=== PATIENT | male | born 1935 | race African-American/Black ===

== ENCOUNTER 2023-03-11 10:15 | Inpatient (IN) | payer BC, OTHER ==
[2023-03-11] VITALS (20 sets, daily range): BP systolic 129–170; BP diastolic 49–83; PULSE 68–82; RESP 10–18; TEMP 98–98.6; O2SAT 97–99
[~2023-03-11] VITALS: Ht 193 cm; Wt 89.9 kg
[2023-03-11] MEDS ORDERED: SODIUM CHLORIDE 0.9% 500 ML IVB ONE (10:45)
[2023-03-11 11:31] LABS: Lactic Acid w/Reflex 2.8 mmol/L (0.4-2.0)
[2023-03-11 11:37] LABS: Basophils # (auto) 0 10 ^3/uL (0-0.2); Basophils % (auto) 0.9 % (0.0-2.0); Eosinophils # (auto) 0 10 ^3/uL (0-0.8); Eosinophils % (auto) 0.6 % (0.0-7.0); Hematocrit 8.3 % (41.0-53.0); Lymphocytes # (auto) 0.9 10 ^3/uL (0.4-5.4); Lymphocytes % (auto) 29.9 % (10.0-50.0); Mean Corpuscular Hgb Conc. 28.3 g/dL (32.0-36.0); Mean Corpuscular Volume 56.7 fL (80.0-100.0); Monocytes # (auto) 0.2 10 ^3/uL (0-1.3); Monocytes % (auto) 8.5 % (0.0-12.0); Neutrophils # (auto) 1.7 10 ^3/uL (1.6-8.6); Neutrophils % (auto) 60.1 % (37.0-80.0); Nucleated Red Blood Cells % 1.2 %; Red Blood Cells 1.46 10^6/uL (4.5-5.90); White Blood Cell 2.9 10^3/uL (4.4-10.8)
[2023-03-11 11:40] LABS: Red Cell Distribution Width 20.6 % (11.8-14.3)
[2023-03-11 11:44] LABS: Alanine Aminotransferase 14 U/L (16-61); Albumin 2.7 g/dL (3.4-5.0); Anion Gap 8 (5-15); Aspartate Aminotransferase 8 U/L (15-37); BUN/Creatinine Ratio 11.1 (10.0-20.0); Blood Alcohol < 3.0 mg/dL (<10); Blood Urea Nitrogen 18 mg/dL (7-18); Calcium 7.8 mg/dL (8.5-10.1); Carbon Dioxide 20 mmol/L (21-32); Chloride 113 mmol/L (98-107); GFR African American 52 mL/min; GFR Non-African American 43 mL/min; Glucose 127 mg/dL (74-106); Magnesium 2.4 mg/dL (1.6-2.6); Potassium 3.9 mmol/L (3.5-5.1); Sodium 141 mmol/L (136-145)
[2023-03-11 11:47] LABS: Alkaline Phosphatase 41 U/L (45-117); Bilirubin, Total 0.2 mg/dL (0.2-1.0); Total Protein 4.8 g/dL (6.4-8.2)
[2023-03-11 12:00] LABS: Hemoglobin 2.3 g/dL (13.5-17.5)
[2023-03-11 12:02] LABS: Platelet Estimate Adequate
[2023-03-11 12:03] LABS: Anisocytosis Slight; Hypochromia Marked
[2023-03-11 12:05] LABS: Tear Drop Cells MODERA
[2023-03-11 12:06] LABS: Ovalocytes MODE
[2023-03-11 12:07] LABS: Target Cell FEW
[2023-03-11] MEDS ORDERED: NITROGLYCERIN 0.4 MG SL TAB SL PRN (12:30)
[2023-03-11] MEDS ORDERED: MORPHINE SULFATE INJ 2 MG/ml SYRG IV PRN (12:30)
[2023-03-11] MEDS ORDERED: SOD CHL 0.45% 1,000 ML IV ONE (12:30)
[2023-03-11 13:42] LABS: Basophils # (auto) 0 10 ^3/uL (0-0.2); Eosinophils # (auto) 0 10 ^3/uL (0-0.8); Hematocrit 9.1 % (41.0-53.0); Mean Corpuscular Hgb Conc. 27.7 g/dL (32.0-36.0); White Blood Cell 3.4 10^3/uL (4.4-10.8)
[2023-03-11 13:44] LABS: Basophils % (auto) 0.9 % (0.0-2.0); Eosinophils % (auto) 0.5 % (0.0-7.0); Lymphocytes # (auto) 0.7 10 ^3/uL (0.4-5.4); Lymphocytes % (auto) 19.8 % (10.0-50.0); Mean Corpuscular Hemoglobin 15.9 pg (28.0-32.0); Mean Corpuscular Volume 57.6 fL (80.0-100.0); Monocytes # (auto) 0.4 10 ^3/uL (0-1.3); Monocytes % (auto) 10.7 % (0.0-12.0); Neutrophils # (auto) 2.3 10 ^3/uL (1.6-8.6); Neutrophils % (auto) 68.1 % (37.0-80.0); Nucleated Red Blood Cells % 0.8 %; Red Blood Cells 1.58 10^6/uL (4.5-5.90); Red Cell Distribution Width 20.7 % (11.8-14.3)
[2023-03-11 13:46] LABS: INR 1.29 (0.9-1.15); Prothrombin Time 13.3 sec (9.3-11.8)
[2023-03-11 13:49] LABS: Hemoglobin 2.5 g/dL (13.5-17.5)
[2023-03-11 21:12] LABS: COVID19 ANTIGEN SOFIA FIA NEGATIVE (NEGATIVE)
[2023-03-12] VITALS (19 sets, daily range): BP systolic 120–162; BP diastolic 67–108; PULSE 63–93; RESP 10–20; TEMP 97.8–98.8; O2SAT 92–99
[2023-03-12 00:07] LABS: Urine Bacteria NONE SEEN /hpf (None Seen); Urine WBC <1 /hpf (0 - 3)
[2023-03-12 00:12] LABS: Urine Clarity CLEAR (Clear); Urine Color Yellow (Yellow)
[2023-03-12 00:13] LABS: Urine Blood 2+ /uL (Negative); Urine Protein, UAD Normal (Negative); Urine Specific Gravity 1.013 (1.001-1.035); Urine Urobilinogen 1 mg/dL (Negative); Urine pH 6.5 (5.0-8.0)
[2023-03-12 07:34] LABS: Basophils # (auto) 0 10 ^3/uL (0-0.2); Basophils % (auto) 0.6 % (0.0-2.0); Calcium 8.3 mg/dL (8.5-10.1); Hematocrit 24.4 % (41.0-53.0); Hemoglobin 8.2 g/dL (13.5-17.5); Monocytes # (auto) 0.5 10 ^3/uL (0-1.3); Potassium 4.3 mmol/L (3.5-5.1); White Blood Cell 4.9 10^3/uL (4.4-10.8)
[2023-03-12 07:38] LABS: BUN/Creatinine Ratio 12.7 (10.0-20.0); Eosinophils # (auto) 0.1 10 ^3/uL (0-0.8); Eosinophils % (auto) 1.3 % (0.0-7.0); Lymphocytes # (auto) 1.5 10 ^3/uL (0.4-5.4); Lymphocytes % (auto) 30.9 % (10.0-50.0); Mean Corpuscular Hemoglobin 24.6 pg (28.0-32.0); Mean Corpuscular Hgb Conc. 33.5 g/dL (32.0-36.0); Mean Corpuscular Volume 73.5 fL (80.0-100.0); Monocytes % (auto) 10.1 % (0.0-12.0); Neutrophils # (auto) 2.8 10 ^3/uL (1.6-8.6); Neutrophils % (auto) 57.1 % (37.0-80.0); Nucleated Red Blood Cells % 0.7 %; Red Blood Cells 3.32 10^6/uL (4.5-5.90)
[2023-03-12 07:44] LABS: Red Cell Distribution Width 27.1 % (11.8-14.3)
[2023-03-12 08:39] LABS: Anisocytosis Moderate; Hypochromia Slight; Platelet Estimate Adequate
[2023-03-12 11:32] LABS: Basophils # (auto) 0 10 ^3/uL (0-0.2); Basophils % (auto) 0.6 % (0.0-2.0); Eosinophils # (auto) 0.1 10 ^3/uL (0-0.8); Eosinophils % (auto) 1.2 % (0.0-7.0); Hematocrit 28.7 % (41.0-53.0); Hemoglobin 9.6 g/dL (13.5-17.5); Lymphocytes # (auto) 1.2 10 ^3/uL (0.4-5.4); Lymphocytes % (auto) 24.3 % (10.0-50.0); Mean Corpuscular Hemoglobin 25.3 pg (28.0-32.0); Mean Corpuscular Hgb Conc. 33.5 g/dL (32.0-36.0); Mean Corpuscular Volume 75.5 fL (80.0-100.0); Monocytes # (auto) 0.5 10 ^3/uL (0-1.3); Monocytes % (auto) 9.3 % (0.0-12.0); Neutrophils # (auto) 3.3 10 ^3/uL (1.6-8.6); Neutrophils % (auto) 64.6 % (37.0-80.0); Nucleated Red Blood Cells % 1.3 %; White Blood Cell 5.1 10^3/uL (4.4-10.8)
[2023-03-12 11:33] LABS: Red Cell Distribution Width 26.1 % (11.8-14.3)
[2023-03-12] MEDS ORDERED: APIX2.5T PO (11:42)
[2023-03-12] MEDS ORDERED: TAMS1CAP25 PO (11:42)
[2023-03-12] MEDS ORDERED: METO25TA93 PO (11:42)
[2023-03-12 12:43] LABS: Anisocytosis Slight; Platelet Estimate Adequate
[2023-03-13 05:00] VITALS: BP 155/69; PULSE 64; RESP 16; TEMP 98; O2SAT 100
[2023-03-13 07:00] LABS: Basophils # (auto) 0 10 ^3/uL (0-0.2); Eosinophils # (auto) 0.1 10 ^3/uL (0-0.8); Hemoglobin 10.4 g/dL (13.5-17.5); Lymphocytes # (auto) 1.2 10 ^3/uL (0.4-5.4); Monocytes # (auto) 0.7 10 ^3/uL (0-1.3); Neutrophils # (auto) 4.7 10 ^3/uL (1.6-8.6); Neutrophils % (auto) 69.4 % (37.0-80.0); White Blood Cell 6.7 10^3/uL (4.4-10.8)
[2023-03-13 07:02] LABS: Basophils % (auto) 0.6 % (0.0-2.0); Eosinophils % (auto) 1.2 % (0.0-7.0); Hematocrit 32.5 % (41.0-53.0); Lymphocytes % (auto) 17.7 % (10.0-50.0); Mean Corpuscular Hgb Conc. 32.1 g/dL (32.0-36.0); Mean Corpuscular Volume 77.8 fL (80.0-100.0); Monocytes % (auto) 11.1 % (0.0-12.0); Nucleated Red Blood Cells % 0.3 %; Red Blood Cells 4.17 10^6/uL (4.5-5.90)
[2023-03-13 08:00] VITALS: PULSE 75; PULSE 78; RESP 18
[2023-03-13] MEDS ORDERED: FLUMAZENIL 0.1 MG/ML INJ 10ML MDV IV ONE (08:24)
[2023-03-13] MEDS ORDERED: NALOXONE HCL 0.4 MG/ML VIAL ONE (08:24)
[2023-03-13] MEDS ORDERED: SODIUM CHLORIDE LOCK 10 ML ONE (08:25)
[2023-03-13] MEDS ORDERED: diphenhdrAMINE HCL 50 MG/1 ML VL ONE (08:25)
[2023-03-13] MEDS ORDERED: LIDOCAINE VISCOUS 2% 15ML UD ONE (08:26)
[2023-03-13 08:56] VITALS: O2SAT 99
[2023-03-13 09:00] VITALS: BP 149/72; PULSE 74; RESP 18; TEMP 98.2; O2SAT 100
[2023-03-13] MEDS: MIDAZOLAM HCL 5 MG/ML-1ML VIAL ONE ×4 (09:01→09:19)
[2023-03-13] MEDS: fentaNYL CITRATE 100 MCG/2 ML VL ONE ×4 (09:01→09:19)
[2023-03-13 09:02] LABS: Potassium 4.3 mmol/L (3.5-5.1)
[2023-03-13 09:10] LABS: BUN/Creatinine Ratio 12.5 (10.0-20.0); Calcium 8.1 mg/dL (8.7-10.4)
[2023-03-13 10:13] LABS: Anisocytosis Slight; Platelet Estimate Adequate
[2023-03-13 10:15] LABS: Hypochromia Slight
[2023-03-13 13:00] VITALS: BP_SYST 151; BP_DIAS 7; BP_DIAS 77; PULSE 60; RESP 18; TEMP 97.8; O2SAT 98
[2023-03-13] MEDS ORDERED: hydrALAZINE HCL 20 MG/ML VL IV PRN (16:15)
[2023-03-13 17:00] VITALS: BP 161/94; PULSE 88; RESP 19; TEMP 98.2; O2SAT 98
[2023-03-13 18:13] LABS: COVID19 ANTIGEN SOFIA FIA NEGATIVE (NEGATIVE)
== END 2023-03-13 23:05 | disposition short-term general hospital (02) | DRG 381 ==
LOC: EDBD 10:15 → ER 10:15 → TELE 12:32 → TELE-WESTW 03-12 11:03
PROVIDERS: ADMIT Internal Medicine; ATTEND Internal Medicine
PROC: 30233N1 Transfusion of Nonautologous Red Blood Cells into Peripheral Vein, Percutaneous Approach (ICD-10-PCS; principal; 2023-03-11)
PROC: 0DJ08ZZ Inspection of Upper Intestinal Tract, Via Natural or Artificial Opening Endoscopic (ICD-10-PCS; 2023-03-13)
DX: K31.1 Adult hypertrophic pyloric stenosis (principal); D62 Acute posthemorrhagic anemia; K92.2 Gastrointestinal hemorrhage, unspecified; N17.9 Acute kidney failure, unspecified; I48.91 Unspecified atrial fibrillation; I10 Essential (primary) hypertension; E88.09 Other disorders of plasma-protein metabolism, not elsewhere classified; Z20.822 Contact with and (suspected) exposure to COVID-19; I25.10 Atherosclerotic heart disease of native coronary artery without angina pectoris; K31.84 Gastroparesis; Z79.01 Long term (current) use of anticoagulants
CPT/HCPCS: 36415; 43213; 43235; 70450; 71045; 74176; 80048; 80053; 80320; 81001; 82962; 83540; 83550; 83605; 83735; 84484; 85025; 85610; 86850; 86900; 86901; 86920; 87040; 87426; 93005; G0378; J2250

== ENCOUNTER 2023-03-15 21:14 | Observation (INO) | payer BC ==
[~2023-03-15] VITALS: Ht 33 cm; Wt 0.5 kg
[~2023-03-15 21:14] MED LIST: METO25TA93 PO; TAMS1CAP25 PO
[2023-03-15] MEDS ORDERED: NITROGLYCERIN 0.4 MG SL TAB SL PRN (23:30)
[2023-03-15] MEDS ORDERED: ONDANSETRON HCL 4 MG/2 ML VIAL IV PRN (23:30)
[2023-03-15] MEDS ORDERED: MORPHINE SULFATE INJ 2 MG/ml SYRG IV PRN ×2 (23:30)
[2023-03-15 23:56] VITALS: BP 121/62; PULSE 71; RESP 18; TEMP 98.1; O2SAT 99
[2023-03-16] MEDS: SOD CHL 0.45% 1,000 ML IV SCH ×2 (00:46→08:57)
[2023-03-16 05:00] VITALS: BP 141/67; PULSE 67; RESP 16; TEMP 97.9; O2SAT 100
[2023-03-16 07:02] LABS: Basophils # (auto) 0 10 ^3/uL (0-0.2); Basophils % (auto) 0.2 % (0.0-2.0); Eosinophils # (auto) 0.1 10 ^3/uL (0-0.8); Lymphocytes # (auto) 1.7 10 ^3/uL (0.4-5.4); Monocytes # (auto) 0.6 10 ^3/uL (0-1.3)
[2023-03-16 07:05] LABS: Eosinophils % (auto) 0.7 % (0.0-7.0); Hematocrit 26.2 % (41.0-53.0); Hemoglobin 8.6 g/dL (13.5-17.5); Lymphocytes % (auto) 20.9 % (10.0-50.0); Mean Corpuscular Hemoglobin 25.5 pg (28.0-32.0); Mean Corpuscular Hgb Conc. 32.7 g/dL (32.0-36.0); Monocytes % (auto) 7.4 % (0.0-12.0); Neutrophils # (auto) 5.8 10 ^3/uL (1.6-8.6); Neutrophils % (auto) 70.8 % (37.0-80.0); Nucleated Red Blood Cells % 0.2 %; Red Blood Cells 3.36 10^6/uL (4.5-5.90); White Blood Cell 8.2 10^3/uL (4.4-10.8)
[2023-03-16 07:08] LABS: INR 1.17 (0.9-1.15); Prothrombin Time 12.2 sec (9.3-11.8)
[2023-03-16 07:09] LABS: Red Cell Distribution Width 27.3 % (11.8-14.3)
[2023-03-16 07:30] VITALS: PULSE 66; TEMP 36.6
[2023-03-16 07:50] LABS: Alkaline Phosphatase 43 U/L (46-116); Anion Gap 6.1 (5-15); BUN/Creatinine Ratio 10.9 (10.0-20.0); Blood Urea Nitrogen 19 mg/dL (9-23); Calcium 8.3 mg/dL (8.5-10.1); Carbon Dioxide 21.9 mmol/L (20-30); Chloride 112 mmol/L (98-107); Glucose 102 mg/dL (74-106); Potassium 4.2 mmol/L (3.5-5.1); Sodium 140 mmol/L (136-145)
[2023-03-16 07:51] LABS: Albumin 2.8 g/dL (3.2-4.8); Aspartate Aminotransferase < 8 U/L (13-40)
[2023-03-16 07:52] LABS: Bilirubin, Total 0.4 mg/dL (0.2-1.0); Total Protein 4.5 g/dL (5.7-8.2)
[2023-03-16 08:03] LABS: Alanine Aminotransferase 9 U/L (7-40)
[2023-03-16 09:00] VITALS: BP 156/61; PULSE 71; RESP 17; TEMP 97.8; O2SAT 93
[2023-03-16] MEDS ORDERED: METOPROLOL SUCCINATE XL 50 MG TAB PO SCH ×2 (10:00)
[2023-03-16] MEDS ORDERED: PANTOPRAZOLE 40 MG TAB PO SCH (10:00)
[2023-03-16] MEDS ORDERED: MORPHINE SULFATE INJ 2 MG/ml SYRG IV PRN (10:30)
[2023-03-16] MEDS ORDERED: SUCR1SUS26 PO (10:56)
[2023-03-16] MEDS ORDERED: TAMS-35 PO (10:56)
[2023-03-16] MEDS ORDERED: PANT40T PO ×2 (10:56)
[2023-03-16] MEDS ORDERED: PANT40TA2 PO ×3 (11:10→11:23)
[2023-03-16 11:16] LABS: Hematocrit 29.5 % (41.0-53.0); Hemoglobin 9.3 g/dL (13.5-17.5)
[2023-03-16] MEDS ORDERED: SUCRALFATE 1 GM/10 ML ORAL SUSP PO SCH (11:30)
[2023-03-16 12:34] VITALS: BP 136/88; PULSE 70; RESP 17; TEMP 98; O2SAT 99
[2023-03-16 15:05] VITALS: BP 136/88; PULSE 70; RESP 20; TEMP 98; O2SAT 99
[2023-03-16] MEDS ORDERED: TAMSULOSIN HYDROCHLORIDE 0.4 MG CAP PO SCH ×2 (18:00)
== END 2023-03-16 16:33 | disposition home health service (06) ==
LOC: WEST WING 22:39 → UNDOADMIN 22:39 → WEST WING 22:39 → TELE-WESTW 22:52
PROVIDERS: ADMIT Hospitalist; ATTEND Hospitalist
DX: K25.4 Chronic or unspecified gastric ulcer with hemorrhage (principal); D62 Acute posthemorrhagic anemia; K31.1 Adult hypertrophic pyloric stenosis; K22.2 Esophageal obstruction; I48.91 Unspecified atrial fibrillation; I10 Essential (primary) hypertension; Z79.01 Long term (current) use of anticoagulants; Z79.899 Other long term (current) drug therapy
CPT/HCPCS: 36415; 80053; 85014; 85018; 85025; 85610; 87081; 96360; 96361; G0378; J7030

== ENCOUNTER 2024-12-10 05:08 | Emergency (ER) | payer OTHER, BC ==
[2024-12-10 05:08] VITALS: BP 82/58; RESP 30; TEMP 97.9; O2SAT 98
[~2024-12-10 05:08] MED LIST changes: +PANT40TA2 PO; +SUCR1SUS26 PO; +TAMS-35 PO
[2024-12-10] MEDS ORDERED: CALCIUM CHLOR(10%) 100MG/ML 10ML SYRINGE IV ONE (05:09)
--- NOTE | 2024-12-10 05:22 | ED.PDOC ---
CPR-HPI HPI Comments This is a 89-year-old male, with a history of AFib and renal failure, that is brought in by ambulance status post ROSC. Per EMS report, daughter called after patient was found short of breath, this morning. Prior to arrival, patient became apneic, with CPR being initiated by bystanders. Patient was found in asystole, with a blood glucose in the 120s, and proceeded to have been given 3 rounds of epinephrine and calcium in addition to continuous CPR. ROSC was obtained, successfully, afterwards. 12 lead showed patient transitioning between tachycardia and AFib RVR. He was given push dose epi in addition to being intubated with 7.2 Mongolian tube at 22 cm at the mouth prior to arrival. No additional associated symptoms are reported. 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, Medications, Allergies Allergies: Coded Allergies: NO KNOWN ALLERGIES (Unverified , 03/11/23) Home Meds Active Scripts Pantoprazole Sodium Sesquihydr (Protonix) 40 Mg Tab, 40 MG PO BID, #180 TAB Prov:JAMEEL ARCEO MD 03/16/23 Tamsulosin Hcl (Flomax) 0.4 Mg Cap, 0.4 MG PO QPM for 90 Days, #90 CAP Prov:JAMEEL ARCEO MD 03/16/23 Sucralfate (CARAFATE SUSP) 1 Gm/10 Ml Ss, 1 GM PO QIDACHS for 30 Days, #1200 ML 2 Refills Prov:JAMEEL ARCEO MD 03/16/23 Reported Medications Metoprolol Succinate (Metoprolol Succinate Er) 25 Mg Tab, 25 MG PO DAILY for 30 Days, MG 03/12/23 Tamsulosin HCl (Tamsulosin Hydrochloride) 0.4 Mg Cap, 0.4 MG PO DAILY, CAP 03/12/23 Information Source: Emergency Med Personnel Mode of Arrival: EMS Timing: Hours Onset: At rest Available Hx: Prior Cardiac Disease Inital rhythm: Asystole Treatment: CPR, Intubation, Epinephrine (3 rounds, with 1 round of push dose, for a total 4 doses), Other (Calcium) Associated signs and symptoms: Other (Shortness of breath) Past Medical History PAST MEDICAL HISTORY: AFIB Past Medical History (Other): Renal failure Surgical History: Unknown, Unobtainable Family History Family History: Unknown, Unobtainable Social History Smoker: Unknown, Unobtainable Alcohol: Unknown, Unobtainable Drugs: Unknown, Unobtainable Lives In: Home, Assisted Care All Other Systems: Reviewed and Negative (Comprehensive review of systems are negative unless otherwise stated in HPI) Physical Exam Exam Comments Pt intubated on arrival, pupils fixed and dilated, weak pulse, appears cachectic and gravely ill General Appearance: Cachectic, Other HEENT: Head, Other (fixed and dilated) Neck: Supple, Other (jvd) Respiratory: Normal Breath Sounds, Other (no spontaneous respirations) Cardiovascular: None, Other (weak thready pulse on arrival; deteriorated to pulseless) Breast Exam: Other Gastrointestinal: Non Tender, Soft Genitalia: Normal Pelvic: Other Rectal: Rectal Exam not done Extremities: Pedal edema, Slow capillary refill Neurologic: Other (unresponsive, no blink reflex, no gag reflex) Cerebellar Function: Unable to Test, NOT DONE Reflexes: Other (none), None Skin: Dry, Pallor Lymphatic: None, Other Was a procedure done? Was a procedure done?: No Differential Dx CPR Differential Diagnosis: Cardiopulmonary arrest, Dysrhythmia, Electrolyte disorder, Heart Block, Myocardial Infarction, Pulmonary Embolus, Respiratory Failure, Other X-Ray, Labs, Meds, VS Vital Signs Date Time Temp Pulse Resp B/P (MAP) Pulse Ox O2 Delivery O2 Flow Rate FiO2 12/10/24 08:22 208.2 0 0 0 Ambu-Bag 0 12/10/24 06:10 Mechanical Ventilator+ 100 100 12/10/24 05:23 97 12/10/24 05:09 72 12/10/24 05:08 97.9 86 30 82/58 (66) 98 97.9 Lab Test 12/10/24 05:30 Range/Units White Blood Count 11.1 H 4.4-10.8 10^3/uL Red Blood Count 2.71 L 4.5-5.90 10^6/uL Hemoglobin 7.2 L 13.5-17.5 g/dL Hematocrit 26.5 L 41.0-53.0 % Mean Corpuscular Volume 97.9 80.0-100.0 fL Mean Corpuscular Hemoglobin 26.4 L 28.0-32.0 pg Mean Corpuscular Hemoglobin Concent 27.0 L 32.0-36.0 g/dL Red Cell Distribution Width 22.9 H 11.8-14.3 % Platelet Count 56 L 140-450 10^3/uL Mean Platelet Volume 8.8 6.9-10.8 fL Neutrophils (%) (Auto) 57.5 37.0-80.0 % Lymphocytes (%) (Auto) 40.1 10.0-50.0 % Monocytes (%) (Auto) 2.1 0.0-12.0 % Eosinophils (%) (Auto) 0.1 0.0-7.0 % Basophils (%) (Auto) 0.2 0.0-2.0 % Neutrophils # (Auto) 6.4 1.6-8.6 10 ^3/uL Lymphocytes # (Auto) 4.5 0.4-5.4 10 ^3/uL Monocytes # (Auto) 0.2 0-1.3 10 ^3/uL Eosinophils # (Auto) 0 0-0.8 10 ^3/uL Basophils # (Auto) 0 0-0.2 10 ^3/uL Nucleated Red Blood Cells 1.8 % Prothrombin Time 19.3 H 9.3-11.8 sec Prothrombin Time INR 1.94 H 0.9-1.15 Activated Partial Thromboplast Time 64.3 H 24.5-34.5 SEC Sodium Level 160 H 136-145 mmol/L Potassium Level 6.5 *H 3.5-5.1 mmol/L Chloride Level 125 H 98-107 mmol/L Carbon Dioxide Level 14 L 20-31 mmol/L Anion Gap 21 H 5-15 Blood Urea Nitrogen 104 *H 9-23 mg/dL Creatinine 3.31 H 0.700-1.30 mg/dL Glomerular Filtration Rate Calc 17 >90 mL/min BUN/Creatinine Ratio 31.4 H 10.0-20.0 Serum Glucose 84 74-106 mg/dL Lactic Acid Level 11.5 *H 0.4-2.0 mmol/L Calcium Level 12.1 H 8.7-10.4 mg/dL Magnesium Level 3.0 H 1.6-2.6 mg/dL Total Bilirubin 0.6 0.2-1.0 mg/dL Aspartate Amino Transferase (AST) > 1000 H 13-40 U/L Alanine Aminotransferase (ALT) 521 H 7-40 U/L Alkaline Phosphatase 180 H 46-116 U/L Troponin I High Sensitivity 456 *H </=54 ng/L Total Protein 4.8 L 5.7-8.2 g/dL Albumin 2.4 L 3.2-4.8 g/dL Current Medications Medications (Trade) Dose Ordered Sig/Marcel Route Start Time Stop Time Status Last Admin Sodium Chloride 1,000 ml @ 1,000 mls/hr Q1H ONCE IVB 12/10/24 05:30 12/10/24 06:29 DC 12/10/24 05:30 Amiodarone HCl 100 ml @ 600 mls/hr ONCE ONCE IV 12/10/24 05:30 12/10/24 05:39 DC 12/10/24 05:40 Time of 1ST Reevaluation: 05:40 Reevaluation 1ST: Patient Education/Counseling: Other () Family Education/Counseling: Treatment Departure 1 Departure Time of Disposition: 05:40 Impression: Primary Impression: Cardiopulmonary arrest Additional Impression: Status post dilation of esophageal narrowing Disposition: 20 Condition: Other () Discharged With: Relative, Spouse Critical Care Note Critical Care Time?: Yes (35 min-critical care time only) Critical care comment: 36 min CPR, ACLS performed, unsuccessful, patient 05:40am Heart Score Heart Score: Heart Score Response (Comments) Value History N/A 0 EKG N/A 0 Age N/A 0 Risk Factors N/A 0 Troponin N/A 0 Total 0 Stability Stability form required: No I personally scribed for KYRA AHUMADA MD ([email or web address]) on 12/10/24 at 05:44. Electronically submitted by Zack Vazquez ([email or web address]). KYRA AHUMADA MD December 10, 2024 05:22
[2024-12-10 05:23] VITALS: PULSE 97
[2024-12-10] MEDS: SODIUM CHLORIDE 0.9% 1,000 ML IVB ONE (05:30)
[2024-12-10] MEDS: AMIODARONE BOLUS KIT 100 ML IV ONE (05:40)
[2024-12-10 06:11] LABS: Basophils # (auto) 0 10 ^3/uL (0-0.2); Eosinophils # (auto) 0 10 ^3/uL (0-0.8); Hematocrit 26.5 % (41.0-53.0); Neutrophils # (auto) 6.4 10 ^3/uL (1.6-8.6); Red Blood Cells 2.71 10^6/uL (4.5-5.90)
[2024-12-10] MEDS: AMIODARONE 360mg/200mL PREMIX 200 ML IV ONE (06:12)
[2024-12-10 06:14] LABS: Basophils % (auto) 0.2 % (0.0-2.0); Eosinophils % (auto) 0.1 % (0.0-7.0); Hemoglobin 7.2 g/dL (13.5-17.5); Lymphocytes # (auto) 4.5 10 ^3/uL (0.4-5.4); Lymphocytes % (auto) 40.1 % (10.0-50.0); Mean Corpuscular Hemoglobin 26.4 pg (28.0-32.0); Mean Corpuscular Volume 97.9 fL (80.0-100.0); Monocytes # (auto) 0.2 10 ^3/uL (0-1.3); Monocytes % (auto) 2.1 % (0.0-12.0); Neutrophils % (auto) 57.5 % (37.0-80.0); Nucleated Red Blood Cells % 1.8 %; Platelet Count (auto) 56 10^3/uL (140-450); Red Cell Distribution Width 22.9 % (11.8-14.3); White Blood Cell 11.1 10^3/uL (4.4-10.8)
[2024-12-10 06:18] LABS: INR 1.94 (0.9-1.15); Partial Thromboplastin Time 64.3 SEC (24.5-34.5); Prothrombin Time 19.3 sec (9.3-11.8)
[2024-12-10 06:32] LABS: Anion Gap 21 (5-15); BUN/Creatinine Ratio 31.4 (10.0-20.0); Glucose 84 mg/dL (74-106)
[2024-12-10 06:33] LABS: Bilirubin, Total 0.6 mg/dL (0.2-1.0)
[2024-12-10 06:40] LABS: Lactic Acid w/Reflex 11.5 mmol/L (0.4-2.0)
[2024-12-10 06:42] LABS: Alanine Aminotransferase 521 U/L (7-40); Albumin 2.4 g/dL (3.2-4.8); Alkaline Phosphatase 180 U/L (46-116); Aspartate Aminotransferase > 1000 U/L (13-40); Blood Urea Nitrogen 104 mg/dL (9-23); Calcium 12.1 mg/dL (8.7-10.4); Carbon Dioxide 14 mmol/L (20-31); Chloride 125 mmol/L (98-107); Potassium 6.5 mmol/L (3.5-5.1); Sodium 160 mmol/L (136-145); Total Protein 4.8 g/dL (5.7-8.2)
--- NOTE | 2024-12-10 07:39 | RESUS ---
CODE BLUE ASSESSSMENT History of Events History of Events: This is a 89-year-old male, with a history of AFib and renal failure, that is brought in by ambulance status post ROSC. Per EMS report, daughter called after patient was found short of breath, this morning. Prior to arrival, patient became apneic, with CPR being initiated by bystanders. Patient was found in asystole, with a blood glucose in the 120s, and proceeded to have been given 3 rounds of epinephrine and calcium in addition to continuous CPR. ROSC was obtained, successfully, afterwards. 12 lead showed patient transitioning between tachycardia and AFib RVR. He was given push dose epi in addition to being intubated with 7.2 [place] tube at 22 cm at the mouth prior to arrival. No additional associated symptoms are reported. Further history is limited, due to patient's condition and absence of family/caretakers at bedside Initial Information Date: December 10, 2024 Time: 05:10 Location of Arrest: In Field Arrest Witnessed: Yes CPR started by whom: EMS Pre-Hospital Care: ACLS Type of arrest: Cardiac, Respiratory, Adult, Witnessed Spontaneous Respirations: No Pulse Present: No Monitoring: ECG, Pulse Oximetry, Apnea, Telemetry Crash Cart Opened and Supplies: Yes Airway Ventilation Breathing at Onset: Apneic CO2: 0 Oxygen Delivery Method: Ambu-Bag Artificial Ventilation: Bag/Endo tube Intubation Size: 7.5 cuffed Intubated orally: Yes Tube secured at: 22 CO2 indicator used: Yes Confirmation: Auscultation, Exhaled CO2 Comments: PT INTUBATED BY EMS Circulation Circulation : Time: 05:10 Pulse Rate (adult): 0 Blood Pressure Systolic: 0 Blood Pressure Diastolic: 0 Temperature (Fahrenheit): 97.9 Defibrillation Defbrillation #1: Time Defibrillator Applied: 05:17 EKG Rhythm: V-Fibrillation Compressions: Device Compressions Hold/Resume: 0517 Time Defibrillator Shocked Pt.: 05:17 Defib. Joules: 150 Pulse Present: No EKG Rhythm: V-Fibrillation Defbrillation #2: Time Defibrillator Applied: 05:20 EKG Rhythm: V-Fibrillation Compressions: Device Compressions Hold/Resume: 0520 Time Defibrillator Shocked Pt.: 05:20 Defib. Joules: 200 Pulse Present: No EKG Rhythm: V-Fibrillation Procedure - IV Procedure - IV : IV Side: Left IV Location: Forearm Anterior IV Catheter Type: Saline Lock IV Placed: Pre-Hospital IV Gauge: 18 IV Line Care: Saline Flush Medications & Response Medications and Responses #1: Medication Time: 05:10 ADULT Medications Given ADULT: Epinephrine 1 mg, Sodium Bacarbinate 50 meq, Calcium Chloride 10 mL Route of Administration: IV Heart Rate: 0 EKG Rhythm: Asystole Blood Pressure Systolic: 0 Blood Pressure Diastolic: 0 Respiratory Rate: 0 O2 Sat by Pulse Oximetry: 0 EKG Rhythm: Asystole Comment NO PULSE AT 0512 Medications and Responses #2: Medication Time: 05:13 ADULT Medications Given ADULT: Epinephrine 1 mg Route of Administration: IV Heart Rate: 0 EKG Rhythm: Asystole Blood Pressure Systolic: 0 Blood Pressure Diastolic: 0 Respiratory Rate: 0 O2 Sat by Pulse Oximetry: 0 EKG Rhythm: Asystole Comment NO PULSE 0514 Medications and Responses #3: Medication Time: 05:14 ADULT Medications Given ADULT: Epinephrine 1 mg Route of Administration: IV Medication Comment: PER DR AHUMADA Heart Rate: 0 EKG Rhythm: Asystole Blood Pressure Systolic: 0 Blood Pressure Diastolic: 0 Respiratory Rate: 0 O2 Sat by Pulse Oximetry: 0 EKG Rhythm: V-Fibrillation Comment NO PULSE 0517 Medications and Responses #4: Medication Time: 05:17 ADULT Medications Given ADULT: Epinephrine 1 mg Route of Administration: IV Heart Rate: 0 EKG Rhythm: V-Fibrillation Blood Pressure Systolic: 0 Blood Pressure Diastolic: 0 Respiratory Rate: 0 O2 Sat by Pulse Oximetry: 0 EKG Rhythm: V-Fibrillation Comment NO PULSE 0520 Medications and Responses #5: Medication Time: 05:20 ADULT Medications Given ADULT: Epinephrine 1 mg, Amiodarone 150 mg Route of Administration: IV Heart Rate: 0 EKG Rhythm: PEA Blood Pressure Systolic: 0 Blood Pressure Diastolic: 0 Respiratory Rate: 0 O2 Sat by Pulse Oximetry: 0 EKG Rhythm: PEA Comment RHYTHM CHANGE NOTED PULSE CHECK 0521 ROSC. 0531 WIDE COMPLEX NOTED NO PULSE Medications and Responses #6: Medication Time: 05:31 ADULT Medications Given ADULT: Epinephrine 1 mg Route of Administration: IV Heart Rate: 0 EKG Rhythm: PEA Blood Pressure Systolic: 0 Blood Pressure Diastolic: 0 Respiratory Rate: 0 O2 Sat by Pulse Oximetry: 0 EKG Rhythm: PEA Comment NO PULSE 0534 Medications and Responses #7: Medication Time: 05:34 ADULT Medications Given ADULT: Epinephrine 1 mg Route of Administration: IV Heart Rate: 0 EKG Rhythm: PEA Blood Pressure Systolic: 0 Blood Pressure Diastolic: 0 Respiratory Rate: 0 O2 Sat by Pulse Oximetry: 0 EKG Rhythm: PEA Comment NO PULSE 0537 Medications and Responses #8: Medication Time: 05:37 ADULT Medications Given ADULT: Epinephrine 1 mg Route of Administration: IV Heart Rate: 0 EKG Rhythm: PEA Blood Pressure Systolic: 0 Blood Pressure Diastolic: 0 Respiratory Rate: 0 O2 Sat by Pulse Oximetry: 0 EKG Rhythm: PEA Comment NO PULSE AT 0540, PT PRONOUNCED Pacing Pacer Pads Applied and Pacing: Yes Nurses Notes Carole Coma Scale Eye Opening: None (1) [place] Coma Scale Verbal: None (1) [place] Coma Scale Motor: None (1) [place] Total: 3 Pupil Reaction: Non Reactive Bedside Blood Glucose: 69 EKG Rhythm: PEA Time Code Ended Time Code Ended: 05:40 Post Arrest Status: Outcome of code: Unsuccessful Patient pronounced by: DR AHUMADA Time patient pronounced: 05:40 Family notified: Yes Attending called: Yes Code Team Present: IBETH RAMAN RN HS, ANGELICA RN, TALIB RN,ZEB RN, DAVID RN, KAUSHIK ERT, JOE ERT,SERENITY RT Post Resuscitation Neurologica Pupil Size: 4 Comment: IBETH RUBALCAVA December 10, 2024 07:39
[2024-12-10] MEDS ORDERED: AMIODARONE 360mg/200mL PREMIX 200 ML IV SCH (11:45)
--- NOTE | 2025-01-01 10:31 | ECG ---
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
--- NOTE | 2025-01-01 10:31 | ECG ---
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 : 1935 Requested By: KYRA AHUMADA Order Number: [id number] Reading MD: Jean-Paul Sosa Measurements Intervals [place] Rate: 97 P: 249 DC: 248 QRS: 100 QRSD: 152 T: 157 QT: 311 QTc: 395 Interpretive Statements Sinus or ectopic atrial rhythm Multiform ventricular premature complexes Prolonged DC interval Right atrial enlargement IVCD, consider atypical RBBB Probable lateral infarct, age indeterminate Electronically Signed On 12-15-2024 11:37:56 PDT by Jean-Paul Sosa Electronically Signed On 12-31-2024 20:23:14 PDT by Jean-Paul Sosa Electronically Signed On 01-02-2025 9:24:38 PDT by Jean-Paul Sosa Please click the below link to view image of tracing.
== END 2024-12-10 05:40 ==
LOC: EDBD 05:08 → EDUNIT# 05:08 → ER 05:08
DX: I46.9 Cardiac arrest, cause unspecified (principal); I48.91 Unspecified atrial fibrillation; N18.9 Chronic kidney disease, unspecified; Z79.899 Other long term (current) drug therapy
CPT/HCPCS: 36415; 80053; 82947; 83605; 83735; 84484; 85025; 85610; 85730; 87040; 92950; 99291; J0171; J0283; 93005; 96374